=== PATIENT | male | born 2000 | race Caucasian/White ===

== ENCOUNTER → 2018-04-13 | Outpatient (CLI) | payer BC ==
--- NOTE | 2018-04-13 09:37 | RADIOLOGY REPORT (SQ) ---
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 TECHNIQUE: Rightknee images acquired and stored on PACS. Multiplanar images include fat sensitive s equences as T1, water sensitive sequences as FST2 or STIR, cartilage sensitive sequences as FSPD, and gradient echo sequences. LIMITATIONS: None. FINDINGS: JOINT AND BURSAE: Trace fluid. No discrete loose bodies. BONE CORTEX AND MARROW: Slight impaction deformity along the anterior aspect of the lateral femoral c ondyle with mild regional marrow edema. ACL: Intact. No degeneration or ganglion cyst. PCL: Intact. MCL: Intact. No periligamentous edema or fluid. LCL: Intact. No periligamentous edema or fluid. MEDIAL MENISCUS: No tears. No abnormal signal. LATERAL MENISCUS: No tears. No abnormal signal. MEDIAL COMPARTMENT: Cartilage preserved. No bone bruises or reactive marrow edema. No osteophytes. LATERAL COMPARTMENT: Cartilage preserved. No bone bruises or reactive marrow edema. No osteophytes. PATELLA: Mild postoperative artifact. Slight lateral subluxation is suggested with chondral regulari ty in the lateral facet near the apex. Mild hyperintense T2 signal is seen here without focal full-t hickness defect. EXTENSOR MECHANISM: Quadriceps and patellar tendons are generally intact. Mild thickening, presumed scar along the medial patellofemoral ligament no shari retinaculum injury evident. SOFT TISSUES: Minimal Ramos's cyst. Appropriate vascular flow voids. OTHER: No other significant finding. IMPRESSION: 1. 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 There are changes of presumed recent recurrent dislocation, mild edema and irregularity lucien ng the anterior aspect of the lateral femoral condyle. Detailed as above. TECHNICAL DOCUMENTATION: JOB ID: [id number] [employer]- All Rights Reserved Reading location - IP/workstation name: PATIENT REGISTRATION [email or web address]
== END ==
LOC: RAD 08:17
PROVIDERS: ATTEND Orthopaedic Surgery
DX: M22.01 Recurrent dislocation of patella, right knee (principal)